=== PATIENT | female | born 1995 | race Caucasian/White ===

== ENCOUNTER 2024-06-21 13:56 | Emergency (ER) | payer OTHER, SELFPAY ==
[2024-06-21 13:59] VITALS: BP 108/82
--- NOTE | 2024-06-21 14:28 | ED.SKININJ ---
HPI-Injury
General
Chief Complaint: Eye Problems
Source: patient
Exam Limitations: none
Time Seen by Provider: 06/21/24 14:21
Nursing documentation reviewed up to this point in time: agreed with
History of Present Illness-Injury
Is this injury a work related problem?: No
Is pt an associate of [facility]/[place]?: No
Initial Injury comments:
Patient to ED with complaint of pain redness and swelling to left orbit. Symptoms started yesterday and continue to worsen. No history of trauma. Denies fever/chillls. No prior history of same.
Past History
Past History
ED Past Medical History: None
ED Past Surgical History: None
Social History
Tobacco: Non-smoker
Alcohol: None
Personal: Single
Living: with family
Review of Systems
Review of Systems
Allergies reviewed?: Yes
All Other Systems: ROS reviewed and negative except as documented in HPI and ROS
Constitutional: Reports no symptoms
EENT: Reports other (Pain redness and swelling to left orbit)
Musculoskeletal: Reports no symptoms
Skin: Reports other (erythema, pain, swelling left orbit)
Neurological: Reports no symptoms
Psychiatric: Reports no symptoms
Phy Exam
General Physical Exam
General Presentation: well appearing and no apparent distress
General age: appears stated age
General Skin: warm and dry
General Habitus: normal
General Mental: alert
Eye Exam
Eye Exam: PERRL, EOMI, conjunctiva normal, globe normal and other (erythema to upper and lower eyelids on left. no evidence of abscess)
Eye Exam General: PERRL: bilateral
Pupil Exam: Bilateral: reactive
Conjunctival Changes: bilateral: none
Musculoskeletal Exam
Musculoskeletal Exam: full ROM and neuro vasc intact
Skin Exam
Skin Exam: warm/dry and other (erythema to left and lower eyelid)
Psychiatric Exam
Psychiatric Exam: normal mood/affect
Course
Orders/Labs/Results
Orders:
Orders
06/21/24 14:[address] [CT Orbits With Iv Contrast] Urgent
Comment:
Reason For Exam: redness, swelling, pain left orbit
06/21/24 14:28
Test Result ONCE
06/21/24 14:44
Complete Blood Count/With Diff Urgent
Comprehensive Metabolic Panel Urgent
HCG, Serum Qualitative Screen Urgent
06/21/24 17:10
Amoxicillin 875 mg/Clav 125 mg [Augmentin 875 mg/125 mg] 1 tablet PO NOW STA
Abnormal Lab Results
06/21/24
14:44
Absolute Monos (auto) 0.7 H 10^3/uL
(0.1-0.6)
BUN 6 L mg/dl
(7-17)
06/21/24 14:44
06/21/24 14:44
Vital Signs
Initial and Last Documented VS:
Initial Vital Signs
Temp Pulse Resp BP Pulse Ox
98.1 F 75 16 108/82 99
06/21/24 13:59 06/21/24 13:59 06/21/24 13:59 06/21/24 13:59 06/21/24 13:59
Last Documented Vital Signs
Temp Pulse Resp BP Pulse Ox
98.1 F 75 16 108/82 99
06/21/24 13:59 06/21/24 13:59 06/21/24 13:59 06/21/24 13:59 06/21/24 13:59
*Radiology
Radiology exam reviewed: radiology read reviewed
*Critical Care Note
Total Time (30-74mins, 75-104mins- exclusive of procedures): Not Applicable
Update Note
Update Note:
Ct results discussed with patient. No evidence of abscess. No pain with EOM. WBC normal, she is afebrile. Nontoxic appearing. Discussed case with Dr. diaz. WIll initiate antibiotics in dept and discharge home with close follow up with PCP. She
was given instructions on s/sto return to ED and she is agreeable to plan.
ED Attending Note
-
Portions of this chart may have been created with voice recognition software.� Occasional wrong word or��sound alike� substitutions may have occurred due to the inherent limitations of voice recognition software.
Discharge Plan
Departure
Patient Disposition: Home (Routine Discharge)
Date of Disposition: 06/21/24
Time of Disposition: 17:10
Patient with high blood pressure during this ER visit?: No
Condition: Good
Covid-19: Not Applicable
Discharge Problem:
Cellulitis, periorbital
Instructions: Periorbital Cellulitis
Prescriptions:
New
amoxicillin-pot clavulanate 875-125 mg tablet
1 tab PO BID Qty: 20 0RF
Referrals:
Alexandria Smith, [Family Provider] - 06/23/24
Activity Restrictions/Additional Instructions:
Return to the emergency department immediately for fever/chills, increasing pain/redness/swelling, or for any further concerns.
Interventions
Interventions:
*General Assessment Last Done: 06/21/24 14:29
Discharge Date and Time
Print Language: PORTUGUESE
[2024-06-21 14:52] LABS: % Basophils 0.6 % (0-2); % Eosinophils 1.2 % (0-6); % Immature Granulocytes 0.4 % (0-0.5); % Lymphocytes 23.2 % (20.5-51.1); % Monocytes 8.1 % (1.7-9.3); % Neutrophils 66.5 % (42.2-75.2); Absolute Basophils 0.1 10^3/uL (0-0.2); Absolute Eosinophils 0.1 10^3/uL (0-0.7); Absolute Lymphocytes 1.9 10^3/uL (1.2-3.4); Absolute Monocytes 0.7 10^3/uL (0.1-0.6); Absolute Neutrophils 5.3 10^3/uL (1.4-6.5); Hematocrit 38.2 % (37.0-47.0); Hemoglobin 13.1 g/dL (12.0-16.0); Mean Corp Hgb Conc. 34.3 g/dL (33.0-37.0); Mean Corpuscular Hgb 30.5 pg (27.0-31.0); Mean Platelet Volume 9.4 fL (7.4-10.4); Nucleated Red Blood Cells % 0 %; Platelet Count 314 10^3/uL (130-400); Red Blood Cell Count 4.29 10^6/uL (4.20-5.40); Red Cell Dist. Width 12.3 % (11.5-14.5)
[2024-06-21 15:08] LABS: HCG, Serum Qualitative Screen Negative
[2024-06-21 15:12] LABS: ALT (SGPT) < 10 U/L (0-35); AST (SGOT) 22 U/L (14-36); Albumin 4.7 g/dl (3.5-5.0); Alkaline Phosphatase 57 U/L (38-126); Blood Urea Nitrogen 6 mg/dl (7-17); Calcium 9.8 mg/dl (8.4-10.2); Carbon Dioxide 25 mmol/L (22-30); Chloride 101 mmol/L (98-107); Glucose 98 mg/dl (70-99); Potassium 4.1 mmol/L (3.5-5.1); Sodium 139 mmol/L (135-145); Total Bilirubin 0.7 mg/dl (0.2-1.3); Total Protein 7.4 g/dl (6.3-8.2); eGFR > 60.00
[2024-06-21] MEDS: AUGMENTIN 875 MG/125 MG 1 TABLET PO (17:23)
[2024-06-21 18:00] VITALS: BP 125/70
== END 2024-06-21 18:00 | disposition home or self-care (01) ==
LOC: EMR 13:56
PROVIDERS: Nurse Practitioner; EMERGENCY PHYSICIAN Emergency Medicine; FAMILY PHYSICIAN Family Medicine
DX: L03.213 Periorbital cellulitis (principal)
CPT/HCPCS: 99284; 70481; 80053; 84703; 85025; Q9967

== ENCOUNTER 2025-08-20 22:28 | Emergency (ER) | payer OTHER, SELFPAY ==
[2025-08-20 22:50] LABS: Hematocrit 36.1 % (37.0-47.0); Hemoglobin 12.1 g/dL (12.0-16.0); Mean Corp Hgb Conc. 33.5 g/dL (33.0-37.0); Mean Corpuscular Volume 91.4 fL (81.0-99.0); Nucleated Red Blood Cells % 0 %; Platelet Count 343 10^3/uL (130-400); Red Cell Dist. Width 12.3 % (11.5-14.5)
[2025-08-20 23:07] LABS: HCG, Serum Qualitative Screen Negative
[2025-08-20 23:16] LABS: ALT (SGPT) 10 U/L (0-35); AST (SGOT) 21 U/L (14-36); Albumin 4.4 g/dl (3.5-5.0); Alkaline Phosphatase 60 U/L (38-126); Blood Urea Nitrogen 6 mg/dl (7-17); Calcium 9.5 mg/dl (8.4-10.2); Carbon Dioxide 28 mmol/L (22-30); Chloride 100 mmol/L (98-107); Glucose 94 mg/dl (70-99); Potassium 4.3 mmol/L (3.5-5.1); Sodium 132 mmol/L (135-145); Total Protein 7.4 g/dl (6.3-8.2); eGFR > 60.00
--- NOTE | 2025-08-21 01:01 | ED.GENMED ---
History of Present Illness
General
Chief Complaint: Vaginal Bleeding
Source: patient and spouse
Exam Limitations: none
Time Seen by Provider: 08/21/25 00:25
Nursing documentation reviewed up to this point in time: agreed with
History of Present Illness
History of Present Illness:
30-year-old female presenting to the emergency department today with concerns of vaginal bleeding described as multiple pads daily over the past 5 days. Typically has regular menstrual cycles but had her last cycle 2 weeks ago. Has had some crampy
pelvic pain as well. Denies any discharge denies any trauma. No lightheadedness chest pain or shortness of breath.
Past History
Past History
ED Past Medical History: None
ED Past Surgical History: None
Social History
Tobacco: Non-smoker
Alcohol: None
Personal: Single
Living: with family
Review of Systems
Review of Systems
Allergies reviewed?: Yes
All Other Systems: ROS reviewed and negative except as documented in HPI and ROS
Phy Exam
Physical Exam
Physical Exam:
GENERAL: Alert , in no apparent distress
EYE: pupils equal and reactive
NECK: Supple, no significant adenopathy.
ENT: o/p clr, mmm.
CARDIAC: Regular rate and rhythm .
LUNGS: Clear breath sounds bilaterally, no acute respiratory distress, no wheezes/rales/rhonchi
ABDOMEN: Soft, without focal tenderness, no r/g, no cvat
NEUROLOGICAL: Alert and oriented, no focal neuro deficits
SKIN: Warm and dry, skin intact.
MUSCULOSKELETAL: No edema, well perfused.
PSYCH: Normal and appropriate interaction.
Course
Orders/Labs/Results
Orders:
Orders
08/20/25 22:36
Test Result ONCE
08/20/25 22:39
CBC/With Diff [Complete Blood Count/With Diff] Urgent
CMP [Comprehensive Metabolic Panel] Urgent
, Serum Qualitative Screen [HCG, Serum Qualitative Screen] Urgent
08/21/25 00:39
US Pelvis Only (non-obstetric) Urgent
Comment:
Reason For Exam: vaginal bleeding/pain
08/21/25 01:27
Urinalysis Reflex To Culture Urgent
Date Specimen was Collected: 08/21/25
Time Specimen was Collected: 01:26
Urine Microscopic Reflex Cult Urgent
Abnormal Lab Results
08/20/25 08/21/25
22:39 01:27
RBC 3.95 L 10^6/uL
(4.20-5.40)
Hct 36.1 L %
(37.0-47.0)
Absolute Monos (auto) 0.8 H 10^3/uL
(0.1-0.6)
Monocytes % 9.9 H %
(1.7-9.3)
Sodium 132 L mmol/L
(135-145)
BUN 6 L mg/dl
(7-17)
Ur Occult Blood Reflex 4+ A
(Negative)
Urine RBC 11-15 A /HPF
(0-2)
Urine Bacteria (Reflex) Few A
(Negative)
Urine Albumin (Reflex) 1+ A
(Neg - Trace)
08/20/25 22:39
08/20/25 22:39
Vital Signs
Initial and Last Documented VS:
Initial Vital Signs
Temp Pulse Resp Pulse Ox
98.2 F 67 12 97
08/20/25 22:32 08/20/25 22:32 08/20/25 22:32 08/20/25 22:32
Last Documented Vital Signs
Temp Pulse Resp BP Pulse Ox
98.2 F 67 12 132/72 97
08/20/25 22:32 08/20/25 22:32 08/20/25 22:32 08/21/25 02:16 08/21/25 01:02
MDM/Problems Addressed
MDM/Problems Addressed:
30-year-old female presenting with concerns of abnormal vaginal bleeding. Cycles last was to come on for 2 weeks. Bleeding for 5 days. On arrival vital signs are normal patient no distress slightly low sodium level but otherwise labs unremarkable
normal hemoglobin. Not . Here she is no distress it was offered to do a Pap examination she refused to have this completed at this time. Otherwise ultrasound was performed that did not show any emergent pathology she was vies for close
follow-up with gynecology return precautions were given.
*Pulse Oximetry
SaO2: 97
Oxygen Mode of Delivery: Room air
Patient hypoxic: no (97)
*Critical Care Note
Total Time (30-74mins, 75-104mins- exclusive of procedures): Not Applicable
ED Attending Note
-
Portions of this chart may have been created with voice recognition software.� Occasional wrong word or��sound alike� substitutions may have occurred due to the inherent limitations of voice recognition software.
Discharge Plan
Departure
Patient Disposition: Home (Routine Discharge)
Date of Disposition: 08/21/25
Time of Disposition: 04:06
Patient with high blood pressure during this ER visit?: No
Condition: Good
Covid-19: Not Applicable
Discharge Problem:
Abnormal vaginal bleeding
Instructions: Bleeding between periods
Prescriptions:
No Action
amoxicillin-pot clavulanate 875-125 mg tablet
1 tab PO BID Qty: 20 0RF
Referrals:
Alexandria Smith DO [Family Provider, Family Practice]
Carla Morrison MD [Active, Gynecology] - Follow up in 5-7 days
Activity Restrictions/Additional Instructions:
You came to the emergency department today with concerns of bleeding. Here he had a reassuring assessment. Please follow closely with gynecology. Return for any worsening, new or concerning symptoms.
Interventions
Interventions:
*Risk Screen - Suicide Last Done: 08/20/25 22:32
*General Assessment Last Done: 08/20/25 22:32
*Neglect/Abuse Screening Last Done: 08/20/25 22:32
*ED- Fall Risk Assessment Last Done: 08/20/25 22:32
*ED COVID-19 Vaccine History Last Done: 08/20/25 22:32
*ED Influenza Vaccine History Last Done: 08/20/25 22:32
ED-Female Genitourinary Assessment Last Done: 08/20/25 23:22
Discharge Date and Time
Print Language: CITIZEN [place]
[2025-08-21 01:44] LABS: Urine Character Clear (Clear)
[2025-08-21 02:16] VITALS: BP 132/72
[2025-08-21 02:31] LABS: Urine Squamous Cell >30 /LPF (Few)
[2025-08-21 04:14] VITALS: BP 132/72
== END 2025-08-21 04:16 | disposition home or self-care (01) ==
LOC: EMR 22:28
PROVIDERS: Emergency Medicine; Physician Assistant; EMERGENCY PHYSICIAN Student in an Organized Health Care Education/Training Program; FAMILY PHYSICIAN Family Medicine
DX: N93.9 Abnormal uterine and vaginal bleeding, unspecified (principal); R10.20 Pelvic and perineal pain unspecified side
CPT/HCPCS: 99283; 76856; 80053; 81003; 81015; 84703; 85025